=== PATIENT | male | born 1955 | race African-American/Black ===

== ENCOUNTER 2017-08-30 23:31 | Emergency (ER) | payer MEDICAID ==
[~2017-08-30] VITALS: Ht 172.7 cm; Wt 81.6 kg
[~2017-08-30 23:31] MED LIST: AMLO10TA2 PO; LOSA100T27 PO
[2017-08-31 05:26] LABS: Basophils # (auto) 0 uL; Basophils % (auto) 0.4 % (0.0-2.0); Eosinophils # (auto) 0 uL; Hematocrit 37.6 % (41.0-53.0); Hemoglobin 12.7 g/dL (13.5-17.5); Lymphocytes % (auto) 9.3 % (10.0-50.0); Mean Corpuscular Hemoglobin 31.8 pg (28.0-32.0); Mean Corpuscular Hgb Conc. 33.7 g/dL (32.0-36.0); Mean Corpuscular Volume 94.2 fL (80.0-100.0); Mean Platelet Volume 10.9 fL (6.9-10.8); Monocytes # (auto) 0.6 uL; Monocytes % (auto) 5.1 % (0.0-12.0); Neutrophils # (auto) 9.4 uL; Neutrophils % (auto) 85.2 % (37.0-80.0); Nucleated Red Blood Cells % 0.1 %; Platelet Count (auto) 108 10^3/uL (140-450); Red Cell Distribution Width 13.9 % (11.8-14.3)
[2017-08-31 05:43] LABS: INR 1.04 (0.9-1.15); Partial Thromboplastin Time 22.5 sec (22.64-33.71); Prothrombin Time 11.3 sec (9.37-12.3)
[2017-08-31 05:44] LABS: Albumin 3.6 g/dL (3.4-5.0); Calcium 9.1 mg/dL (8.5-10.1); Potassium 3.7 mmol/L (3.5-5.1)
[2017-08-31 05:47] LABS: BUN/Creatinine Ratio 41.5
[2017-08-31 05:50] LABS: Bilirubin, Total 1.2 mg/dL (0.2-1.0); Total Protein 7.7 g/dL (6.4-8.2)
[2017-08-31] MEDS ORDERED: SODIUM CHLORIDE 0.9% 1,000 ML IV ONE (07:38)
[2017-08-31] MEDS ORDERED: ONDANSETRON HCL 4 MG/2 ML VIAL IV ONE (08:00)
[2017-08-31] MEDS ORDERED: LEVOFLOXACIN 500 MG TAB PO ONE (08:00)
[2017-08-31 09:46] VITALS: BP 145/94
[2017-08-31 09:55] LABS: Urine Bilirubin Negative (Negative); Urine Blood Negative /uL (Negative); Urine Color Yellow (Yellow); Urine Glucose Normal (Normal); Urine Ketone 1+ (Negative); Urine Mucus FEW (None Seen); Urine Nitrite Negative (Negative); Urine RBC <1 /hpf (0 - 3); Urine Squamous Epithelial Cell FEW /hpf (<5)
== END 2017-08-31 11:28 | disposition home or self-care (01) ==
LOC: EDBD 23:31 → ER 23:37
DX: E86.0 Dehydration (principal); J40 Bronchitis, not specified as acute or chronic; F17.210 Nicotine dependence, cigarettes, uncomplicated; R53.1 Weakness; I10 Essential (primary) hypertension; Z88.0 Allergy status to penicillin; Z90.49 Acquired absence of other specified parts of digestive tract
CPT/HCPCS: 36415; 74176; 80053; 81001; 82962; 85025; 85610; 85730; 96361; 96374; 99285; J2405; J7030

== ENCOUNTER 2018-12-19 00:21 | Emergency (ER) | payer MEDICAID, OTHER ==
[~2018-12-19] VITALS: Ht 167.6 cm; Wt 83.9 kg
[~2018-12-19 00:21] MED LIST changes: +AMLO10TA12 PO; -AMLO10TA2 PO; +LOSA-49 PO; -LOSA100T27 PO
[2018-12-19 01:55] VITALS: BP 142/83
[2018-12-19] MEDS ORDERED: BACLOFEN 10 MG TAB PO ONE (02:30)
[2018-12-19] MEDS ORDERED: HYDROcodone-ACET 10/325MG TAB PO ONE (02:30)
== END 2018-12-19 03:00 | disposition home or self-care (01) ==
LOC: EDBD 00:21 → ER 00:31
DX: S33.5XXA Sprain of ligaments of lumbar spine, initial encounter (principal); I10 Essential (primary) hypertension; F17.210 Nicotine dependence, cigarettes, uncomplicated; Z88.0 Allergy status to penicillin; Z90.89 Acquired absence of other organs; X58.XXXA Exposure to other specified factors, initial encounter; Y93.89 Activity, other specified; Y99.8 Other external cause status; Y92.89 Other specified places as the place of occurrence of the external cause
CPT/HCPCS: 72100

== ENCOUNTER 2019-03-25 13:19 | Emergency (ER) | payer MEDICAID, OTHER ==
[~2019-03-25] VITALS: Ht 167.6 cm; Wt 81.6 kg
[2019-03-25 14:39] LABS: Alanine Aminotransferase 56 U/L (16-61); Albumin 3.6 g/dL (3.4-5.0); Anion Gap 15 (5-15); Blood Urea Nitrogen 8 mg/dL (7-18); Calcium 8.5 mg/dL (8.5-10.1); Carbon Dioxide 20 mmol/L (21-32); Chloride 100 mmol/L (98-107); Glucose 82 mg/dL (74-106); Potassium 4.2 mmol/L (3.5-5.1); Sodium 135 mmol/L (136-145)
[2019-03-25 14:44] LABS: Alkaline Phosphatase 66 U/L (45-117); Aspartate Aminotransferase 80 U/L (15-37); BUN/Creatinine Ratio 10.3; Bilirubin, Total 0.7 mg/dL (0.2-1.0); GFR African American 128 mL/min; GFR Non-African American 106 mL/min; Total Protein 7.7 g/dL (6.4-8.2)
[2019-03-25 14:55] LABS: Basophils # (auto) 0.1 uL; Basophils % (auto) 1.2 % (0.0-2.0); Eosinophils # (auto) 0 uL; Eosinophils % (auto) 0.2 % (0.0-7.0); Hemoglobin 14.6 g/dL (13.5-17.5); Lymphocytes # (auto) 1.7 uL; Mean Corpuscular Hemoglobin 29.8 pg (28.0-32.0); Mean Corpuscular Hgb Conc. 33.3 g/dL (32.0-36.0); Mean Corpuscular Volume 89.4 fL (80.0-100.0); Monocytes # (auto) 0.5 uL; Monocytes % (auto) 9.5 % (0.0-12.0); Neutrophils # (auto) 2.9 uL; Neutrophils % (auto) 56.1 % (37.0-80.0); Nucleated Red Blood Cells % 0.1 %; Platelet Count (auto) 146 10^3/uL (140-450); Red Blood Cells 4.92 10^6/uL (4.5-5.90); Red Cell Distribution Width 16.1 % (11.8-14.3); White Blood Cell 5.1 10^3/uL (4.4-10.8)
[2019-03-25] MEDS ORDERED: SODIUM CHLORIDE 0.9% 1,000 ML IV ONE (20:45)
[2019-03-25] MEDS ORDERED: ONDANSETRON HCL 4 MG/2 ML VIAL IV ONE (20:45)
[2019-03-25 20:49] VITALS: BP 130/87
== END 2019-03-25 22:32 | disposition home or self-care (01) ==
LOC: ER 13:39
DX: E86.0 Dehydration (principal); F43.9 Reaction to severe stress, unspecified; R60.0 Localized edema; I10 Essential (primary) hypertension; F17.210 Nicotine dependence, cigarettes, uncomplicated; Z88.0 Allergy status to penicillin; Z79.899 Other long term (current) drug therapy; Z90.49 Acquired absence of other specified parts of digestive tract
CPT/HCPCS: 36415; 71046; 80053; 84484; 85025; 93005; 96361; 96374; 99284; J2405; J7030

== ENCOUNTER 2019-11-30 21:32 | Emergency (ER) | payer OTHER, MEDICAID ==
[~2019-11-30] VITALS: Ht 167.6 cm; Wt 81.6 kg
[~2019-11-30 21:32] MED LIST changes: -AMLO10TA12 PO; +AMLO10TA13 PO; +LOSA-39 PO; -LOSA-49 PO
[2019-11-30] MEDS ORDERED: IOHEXOL 300 MG/ML 100ML BOTTLE IJ ONE (23:17)
[2019-12-01 00:43] LABS: Basophils # (auto) 0.1 uL; Basophils % (auto) 1.5 % (0.0-2.0); Eosinophils # (auto) 0 uL; Eosinophils % (auto) 0.2 % (0.0-7.0); Hematocrit 41.9 % (41.0-53.0); Hemoglobin 14.3 g/dL (13.5-17.5); Lymphocytes # (auto) 1.3 uL; Lymphocytes % (auto) 20.1 % (10.0-50.0); Mean Corpuscular Hemoglobin 32.7 pg (28.0-32.0); Mean Corpuscular Hgb Conc. 34.1 g/dL (32.0-36.0); Mean Corpuscular Volume 95.8 fL (80.0-100.0); Monocytes # (auto) 0.6 uL; Monocytes % (auto) 9.8 % (0.0-12.0); Neutrophils # (auto) 4.3 uL; Neutrophils % (auto) 68.4 % (37.0-80.0); Nucleated Red Blood Cells % 0.1 %; Platelet Count (auto) 197 10^3/uL (140-450); Red Blood Cells 4.37 10^6/uL (4.5-5.90); Red Cell Distribution Width 14.3 % (11.8-14.3); White Blood Cell 6.3 10^3/uL (4.4-10.8)
[2019-12-01 00:58] LABS: INR 1.11 (0.9-1.15); Partial Thromboplastin Time 25.5 sec (23.64-32.05)
[2019-12-01 01:01] LABS: Lactic Acid w/Reflex 2.3 mmol/L (0.4-2.0)
[2019-12-01 01:02] LABS: Albumin 3.3 g/dL (3.4-5.0); Potassium 5.3 mmol/L (3.5-5.1)
[2019-12-01 01:05] LABS: Amylase 35 U/L (25-115); BUN/Creatinine Ratio 30.2; Blood Alcohol < 3.0 mg/dL (0-5); Lipase 95 U/L (73-393)
[2019-12-01 01:22] LABS: Bilirubin, Total 0.7 mg/dL (0.2-1.0); Total Protein 7.7 g/dL (6.4-8.2)
[2019-12-01] MEDS ORDERED: PANTOPRAZOLE 40 MG/10 ML VIAL INJ IV ONE (02:45)
[2019-12-01] MEDS ORDERED: PANTOPRAZOLE 80 MG in SODIUM CHL 0.9% 60 ML IV ONE (02:45)
[2019-12-01 10:57] VITALS: BP 136/101
== END 2019-12-01 11:13 | disposition short-term general hospital (02) ==
LOC: ER 21:32
DX: K92.2 Gastrointestinal hemorrhage, unspecified (principal); R11.2 Nausea with vomiting, unspecified; I10 Essential (primary) hypertension; Z88.0 Allergy status to penicillin
CPT/HCPCS: 36415; 71046; 74177; 80053; 80320; 82150; 83605; 83690; 83880; 84484; 85025; 85610; 85730; 86850; 86900; 86901; 93005; 96365; 96376; 99285; C9113; Q9967

== ENCOUNTER 2024-04-21 14:02 | Inpatient (IN) | payer OTHER, MEDICAID ==
[~2024-04-21] VITALS: Ht 177.8 cm; Wt 76.5 kg
[~2024-04-21 14:02] MED LIST changes: -AMLO10TA13 PO; +BISO10TA31 PO; +FOLI-119 PO; -LOSA-39 PO; +METF-1145 PO; +PANT40T PO; +SUCR1TAB PO; +THIA100T5 PO
[2024-04-21] MEDS: SODIUM CHLORIDE 0.9% 1,000 ML IV SCH (15:30)
[2024-04-21] MEDS: SODIUM CHLORIDE 0.9% 1,000 ML IV ONE ×2 (15:30→16:39)
[2024-04-21] MEDS: PANTOPRAZOLE 40 MG/10 ML VIAL INJ IV ONE (15:45)
[2024-04-21] MEDS ORDERED: DEXTROSE (50%) 50ML SYRG IV PRN (15:45)
[2024-04-21 15:47] LABS: Basophils # (auto) 0.1 10 ^3/uL (0-0.2); Eosinophils # (auto) 0 10 ^3/uL (0-0.8); Eosinophils % (auto) 0.6 % (0.0-7.0); Hematocrit 38.5 % (41.0-53.0); Hemoglobin 12.7 g/dL (13.5-17.5); Lymphocytes # (auto) 2.8 10 ^3/uL (0.4-5.4); Lymphocytes % (auto) 50.2 % (10.0-50.0); Mean Corpuscular Hemoglobin 32.6 pg (28.0-32.0); Mean Corpuscular Volume 98.7 fL (80.0-100.0); Monocytes # (auto) 0.5 10 ^3/uL (0-1.3); Monocytes % (auto) 9.3 % (0.0-12.0); Neutrophils # (auto) 2.2 10 ^3/uL (1.6-8.6); Neutrophils % (auto) 38.9 % (37.0-80.0); Nucleated Red Blood Cells % 0.1 %; Red Cell Distribution Width 16.2 % (11.8-14.3); White Blood Cell 5.6 10^3/uL (4.4-10.8)
[2024-04-21 16:04] LABS: Alanine Aminotransferase 18 U/L (7-40); Albumin 3.6 g/dL (3.2-4.8); Alkaline Phosphatase 85 U/L (46-116); Anion Gap 9 (5-15); Aspartate Aminotransferase 55 U/L (13-40); Calcium 9.2 mg/dL (8.5-10.1); Carbon Dioxide 20 mmol/L (20-30); Chloride 103 mmol/L (98-107); Creatine Kinase IFCC 59 U/L (46-171); Glucose 138 mg/dL (74-106); Magnesium 1.7 mg/dL (1.6-2.6); Potassium 4.9 mmol/L (3.5-5.1); Sodium 132 mmol/L (136-145)
[2024-04-21 16:05] LABS: Bilirubin, Total 0.3 mg/dL (0.2-1.0); Total Protein 7.2 g/dL (5.7-8.2)
[2024-04-21 16:07] LABS: BUN/Creatinine Ratio 5.8 (10.0-20.0); Blood Urea Nitrogen < 5 mg/dL (9-23)
[2024-04-21 16:12] LABS: Blood Alcohol 317.6 mg/dL (<10)
[2024-04-21 16:20] LABS: Lactic Acid w/Reflex 6.7 mmol/L (0.4-2.0)
[2024-04-21] MEDS: LORazepam 2MG/ML-1ML VIAL IV ONE ×2 (16:27→19:51)
[2024-04-21] MEDS: LACTULOSE 10g/15ml SOLN 473ML PR ONE (16:42)
[2024-04-21] MEDS ORDERED: HYDROcodone-ACET 5/325MG TAB PO PRN (17:15)
[2024-04-21] MEDS ORDERED: MORPHINE SULFATE INJ 2 MG/ml SYRG IV PRN ×2 (17:15)
[2024-04-21] MEDS ORDERED: ACETAMINOPHEN 325 MG TAB PO PRN (17:15)
[2024-04-21] MEDS ORDERED: ONDANSETRON HCL 4 MG/2 ML VIAL IV PRN (17:15)
[2024-04-21] MEDS ORDERED: NITROGLYCERIN 0.4 MG SL TAB SL PRN (17:15)
[2024-04-21] MEDS ORDERED: DOCUSATE SOD 100 MG CAP PO PRN (17:15)
[2024-04-21] MEDS: LACTULOSE 20Gm/30ML SOLN PO ONE (17:23)
[2024-04-21] MEDS: hydrALAZINE HCL 20 MG/ML VL IV SCH (17:37)
[2024-04-21] MEDS: ACCU-CHEK COMFORT CURVE STRIP VI SCH (17:38)
[2024-04-21] MEDS: InsuLIN REG 1unit/0.01ml Soln (100units/ml) SC SCH (17:39)
[2024-04-21] MEDS: FOLIC ACID 1 MG, MULTIPLE VITAMIN 10 ML, MAGNESIUM SULF SDV 50% 8 MEQ, THIAMINE INJ 100... INJ SCH (18:11)
[2024-04-21 19:30] VITALS: PULSE 116; RESP 20; O2SAT 98
[2024-04-21] MEDS: LORazepam 2MG/ML-1ML VIAL IV PRN (19:50)
[2024-04-22 06:11] LABS: Basophils # (auto) 0.1 10 ^3/uL (0-0.2); Basophils % (auto) 1.4 % (0.0-2.0); Eosinophils # (auto) 0.1 10 ^3/uL (0-0.8); Eosinophils % (auto) 2.4 % (0.0-7.0); Hematocrit 36.9 % (41.0-53.0); Hemoglobin 12.5 g/dL (13.5-17.5); Lymphocytes # (auto) 2.2 10 ^3/uL (0.4-5.4); Mean Corpuscular Hemoglobin 32.5 pg (28.0-32.0); Mean Corpuscular Hgb Conc. 33.8 g/dL (32.0-36.0); Monocytes # (auto) 0.5 10 ^3/uL (0-1.3); Monocytes % (auto) 9.4 % (0.0-12.0); Neutrophils # (auto) 2.7 10 ^3/uL (1.6-8.6); Neutrophils % (auto) 47.8 % (37.0-80.0); Nucleated Red Blood Cells % 0.1 %; Red Blood Cells 3.84 10^6/uL (4.5-5.90); Red Cell Distribution Width 15.4 % (11.8-14.3); White Blood Cell 5.7 10^3/uL (4.4-10.8)
[2024-04-22 06:23] LABS: Alanine Aminotransferase 15 U/L (7-40); Albumin 3.1 g/dL (3.2-4.8); Alkaline Phosphatase 86 U/L (46-116); Anion Gap 9 (5-15); Aspartate Aminotransferase 61 U/L (13-40); Calcium 8.7 mg/dL (8.5-10.1); Carbon Dioxide 19 mmol/L (20-30); Chloride 107 mmol/L (98-107); Glucose 100 mg/dL (74-106); Potassium 4.1 mmol/L (3.5-5.1); Sodium 135 mmol/L (136-145)
[2024-04-22 06:24] LABS: BUN/Creatinine Ratio 7.5 (10.0-20.0); Bilirubin, Total 0.7 mg/dL (0.2-1.0); Blood Urea Nitrogen < 5 mg/dL (9-23); Total Protein 6.3 g/dL (5.7-8.2)
[2024-04-22 08:00] VITALS: PULSE 102; RESP 14; O2SAT 97
[2024-04-22 08:52] LABS: Urine Bacteria None Seen /hpf (None Seen)
[2024-04-22 08:57] LABS: Urine Blood Negative /uL (Negative); Urine Clarity Clear (Clear); Urine Color Light-Yellow (Yellow); Urine Mucus FEW (None Seen); Urine Protein, UAD Negative (Negative); Urine Urobilinogen Normal (Negative); Urine WBC 1 /hpf (0 - 3)
[2024-04-22 09:14] LABS: Amphetamine Screen, Urine Neg (NEGATIVE); Barbiturate Scree,Urine Neg (NEGATIVE); Benzodiazephine Screen, Urine Neg (NEGATIVE); Cannabinoid Screen, Urine Neg (NEGATIVE); Cocaine Screen, Urine Pos (NEGATIVE); Opiate Scree,Urine Neg (NEGATIVE); Phencyclidine Screen, Urine Neg (NEGATIVE)
[2024-04-22] MEDS: LACTULOSE 10g/15ml SOLN 473ML PR SCH (10:00)
[2024-04-22] MEDS: PANTOPRAZOLE 40 MG/10 ML VIAL INJ IV SCH (11:11)
[2024-04-22] MEDS: LACTULOSE 20Gm/30ML SOLN PO SCH (12:34)
[2024-04-22] MEDS: chlordiazePOXIDE HCL 25 MG CAP PO SCH (12:34)
[2024-04-22 14:07] VITALS: BP 132/82; PULSE 80; RESP 16; TEMP 98.5; O2SAT 98
[2024-04-22 15:06] VITALS: BP 132/82; PULSE 80; RESP 16; TEMP 98.5; O2SAT 98
[2024-04-22 16:09] VITALS: PULSE 80; RESP 16; O2SAT 98
[2024-04-22 16:40] VITALS: BP 138/78; PULSE 62; RESP 14; TEMP 97.5; O2SAT 95
[2024-04-22 20:17] VITALS: PULSE 72; RESP 18
[2024-04-22] MEDS: SODIUM CHLORIDE 0.9% 1,000 ML IV SCH (20:53)
[2024-04-23 05:59] VITALS: BP 110/67; PULSE 78; RESP 20; TEMP 98.2; O2SAT 95
[2024-04-23 08:05] VITALS: RESP 18
[2024-04-23] MEDS ORDERED: hydrALAZINE HCL 20 MG/ML VL IV PRN (08:30)
[2024-04-23 09:00] VITALS: BP 137/78; PULSE 115; RESP 20; TEMP 98; O2SAT 96
[2024-04-23 09:17] LABS: Hepatitis B Core Total AB React (Negative)
[2024-04-23 09:30] LABS: Hepatitis A Total Antibody Negative (Negative); Hepatitis B Surface Antibody Positive (Negative); Hepatitis B Surface Antigen Negative (Negative); Hepatitis C Antibody Negative (Negative)
[2024-04-23] MEDS: chlordiazePOXIDE HCL 25 MG CAP PO SCH (11:47)
[2024-04-23 13:00] VITALS: BP 130/76; PULSE 87; RESP 20; TEMP 97.9; O2SAT 96
[2024-04-23 17:00] VITALS: BP 113/77; PULSE 97; RESP 18; TEMP 98.1; O2SAT 97
[2024-04-23 21:00] VITALS: BP 123/73; PULSE 104; RESP 18; TEMP 98.3; O2SAT 98
[2024-04-23 22:25] LABS: INR 1.17 (0.9-1.15); Prothrombin Time 12.3 sec (9.3-11.8)
[2024-04-24 08:14] VITALS: BP 127/69; PULSE 51; RESP 15; TEMP 98.3; O2SAT 96
[2024-04-24] MEDS ORDERED: CHL25C PO (08:36)
[2024-04-24] MEDS ORDERED: FOLI-119 PO (08:36)
[2024-04-24] MEDS ORDERED: THIA100T13 PO (08:36)
[2024-04-24] MEDS: chlordiazePOXIDE HCL 25 MG CAP PO SCH (09:15)
[2024-04-24 10:21] VITALS: BP 110/67
[2024-04-25] MEDS ORDERED: chlordiazePOXIDE HCL 25 MG CAP PO SCH (07:00)
== END 2024-04-24 13:30 | disposition home or self-care (01) | DRG 92 ==
LOC: EDBD 14:02 → ER 14:02 → OVERFLOW 17:16 → CENTRAL 04-22 13:56
PROVIDERS: ADMIT Nurse Practitioner Family; ATTEND Family Medicine
DX: G92.8 Other toxic encephalopathy (principal); E87.20 Acidosis, unspecified; E86.0 Dehydration; I10 Essential (primary) hypertension; E11.9 Type 2 diabetes mellitus without complications; F10.129 Alcohol abuse with intoxication, unspecified; Y90.8 Blood alcohol level of 240 mg/100 ml or more; E78.5 Hyperlipidemia, unspecified; R79.89 Other specified abnormal findings of blood chemistry; F32.A Depression, unspecified; M25.551 Pain in right hip; K74.60 Unspecified cirrhosis of liver; G89.29 Other chronic pain; Z82.49 Family history of ischemic heart disease and other diseases of the circulatory system; Z88.0 Allergy status to penicillin; Z79.899 Other long term (current) drug therapy
CPT/HCPCS: 36415; 70450; 71045; 72125; 73700; 74176; 76705; 80053; 80307; 80320; 81001; 82140; 82550; 82728; 83605; 83690; 83735; 83880; 84484; 85025; 85610; 86704; 86706; 86708; 86803; 87340; 96361; 96374; 96375; 96376; 97163; C9113; G0378; J1815

== ENCOUNTER 2025-03-17 10:40 | Emergency (ER) | payer OTHER, MEDICAID ==
[~2025-03-17] VITALS: Ht 167.6 cm; Wt 72.9 kg
[~2025-03-17 10:40] MED LIST changes: +CHL25C PO; +THIA100T13 PO
--- NOTE | 2025-03-17 11:16 | ED.PDOC ---
History of Present Illness HPI Comments 70-year-old male who comes in with chief complaint of left great toe pain. The patient was having some redness and tenderness to the area after he fell last week. The patient denies any other complaints at this time. There has been no fever or chills. The patient states that the pain is approximately an 8/10. Time Seen by MD: 10:43 Primary Care Provider: KAYLIN Reviewed Notes: Nurses Notes, Medications, Allergies (Allergic to penicillin) Allergies: Coded Allergies: Penicillins (Verified Allergy, Severe, FAINTED, 05/29/15) Home Meds Active Scripts Clindamycin Hcl (CLEOCIN) 150 Mg Cap, 1 CAP PO TID, #30 CAP Prov:SOLANGE POZO MD 03/17/25 Chlordiazepoxide Hcl (Librium) 25 Mg Cp, 25 MG PO TID, #30 CAP Prov:STEPHEN TREVIZO MD 04/24/24 Folic Acid (Folic Acid) 1 Mg Tab, 1 MG PO DAILY, #30 TAB Prov:STEPHEN TREVIZO MD 04/24/24 Thiamine HCl (Thiamine Hydrochloride) 100 Mg Tab, 100 MG PO DAILY, #30 TAB Prov:STEPHEN TREVIZO MD 04/24/24 Folic Acid (Folic Acid) 1 Mg Tab, 1 MG PO DAILY, #30 TAB Prov:STEPHEN TREVIZO MD 03/02/23 Thiamine Hcl (Thiamine Hcl) 100 Mg Tab, 1 TAB PO DAILY, #30 TAB 3 Refills Prov:STEPHEN TREVIZO MD 03/02/23 Sucralfate (Sucralfate) 1 Gm Tab, 1 GM PO Q6HR, #120 TAB Prov:STEPHEN TREVIZO MD 03/02/23 Pantoprazole Sodium Sesquihydr (Pantoprazole Sodium) 40 Mg Tab, 40 MG PO BID, #60 TAB Prov:STEPHEN TREVIZO MD 03/02/23 Reported Medications Bisoprolol Fumarate (Bisoprolol Fumarate) 10 Mg Tab, 1 TAB PO DAILY 03/01/23 Metformin Hydrochloride (Metformin Hcl Er) 500 Mg Tab, 1 TAB PO DAILY 02/28/23 Information Source: Patient Mode of Arrival: The patient was using a walker Severity: Moderate Timing: Days Duration: Since onset Prehospital treatment: None Location: Left great toe pain and redness Past Medical History PAST MEDICAL HISTORY: DM, HTN Surgical History: Appendectomy Family History Family History: Family hx of DM, Family hx of Cancer, Family hx of heart simeon, Family hx of HTN Social History Smoker: Cigarettes, Less Than 1 Pack/Day Alcohol: Occasionally Drugs: Denies Drug Use Lives In: Home Constitutional: denies: chills, diaphoresis, fatigue, fever, malaise, sweats, weakness, others EENTM: denies: blurred vision, double vision, ear bleeding, ear discharge, ear drainage, ear pain, ear ringing, eye pain, eye redness, hearing loss, mouth pain, mouth swelling, nasal discharge, nose bleeding, nose congestion, nose pain, photophobia, tearing, throat pain, throat swelling, voice changes, others Respiratory: denies: cough, hemoptysis, orthopnea, SOB at rest, shortness of breath, SOB with excertion, stridor, wheezing, others Cardiovascular: denies: chest pain, dizzy spells, diaphoresis, Dyspnea on exertion, edema, irregular heart beat, left arm pain, lightheadedness, palpitations, PND, syncope, others Gastrointestinal: denies: abdomen distended, abdominal pain, blood streaked bowels, constipated, diarrhea, dysphagia, difficulty swallowing, hematemesis, melena, nausea, poor appetite, poor fluid intake, rectal bleeding, rectal pain, vomiting, others Genitourinary: denies: burning, dysuria, flank pain, frequency, hematuria, incontinence, penile discharge, penile sore, pain, testicle pain, testicle swelling, urgency, others Neurological: denies: dizziness, fainting, headache, left sided numbness, left sided weakness, numbness, paresthesia, pre-existing deficit, right sided numbness, right sided weakness, seizure, speech problems, tingling, tremors, weakness, others Musculoskeletal: reports: others (Left great toe pain and redness); denies: back pain, gout, joint pain, joint swelling, muscle pain, muscle stiffness, neck pain Integumetry: denies: bruises, change in color, change in hair/nails, dryness, laceration, lesions, lumps, rash, wounds, others Allergic/Immunocompromised: denies: Difficulty Healing, Frequent Infections, Hives, Itching, others Hematologic/Lymphatic: denies: anemia, blood clots, easy bleeding, easy br uising, swollen glands, others Endocrine: denies: excessive hunger, excessive sweating, excessive thirst, excessive urination, flushing, intolerance to cold, intolerance to heat, unexplained weight gain, unexplained weight loss, others Psychiatric: denies: anxiety, bipolar disorder, depression, hopeless, panic disorder, schizophrenia, sleepless, suicidal, others Physical Exam General Appearance: Moderate Distress HEENT: Normal ENT Inspection, Pharynx Normal, TMs Normal Neck: Full Range of Motion, Non-Tender, Normal, Normal Inspection Respiratory: Chest Non-Tender, Lungs Clear, No Accessory Muscle Use, No Respiratory Distress, Normal Breath Sounds Cardiovascular: No Edema, No JVD, No Murmur, No Gallop, Normal Peripheral P ulses, Regular Rate/Rhythm Breast Exam: Deferred Gastrointestinal: No Organomegaly, Non Tender, No Pulsatile Mass, Normal Bowel Sounds, Soft Genitalia: Deferred Pelvic: Deferred Rectal: Deferred Extremities: No calf tenderness, Normal capillary refill, No pedal edema, Swelling (Great toe redness and swelling), Tender Musculoskeletal : Apperance: Normal Neurologic: Alert, technology sales consultant II-XII nml as Tested, No Motor Deficits, Normal Affect, Normal Mood, No Sensory Deficits Cerebellar Function: Normal Reflexes: Normal Skin: Dry, Normal Color, Warm Lymphatic: No Adenopathy Was a procedure done? Was a procedure done?: No Differential Dx Considerations may include: Gout, fracture, contusion X-Ray, Labs, Meds, VS Vital Signs Date Time Temp Pulse Resp B/P (MAP) Pulse Ox O2 Delivery O2 Flow Rate FiO2 03/17/25 12:30 97.9 60 18 121/85 (97) 96 97.9 03/17/25 11:03 98.9 52 18 122/62 (82) 98 98.9 Lab Test 03/17/25 11:29 03/17/25 11:25 Range/Units White Blood Count 7.3 4.4-10.8 10^3/uL Red Blood Count 4.43 L 4.5-5.90 10^6/uL Hemoglobin 14.2 13.5-17.5 g/dL Hematocrit 42.9 41.0-53.0 % Mean Corpuscular Volume 96.7 80.0-100.0 fL Mean Corpuscular Hemoglobin 31.9 28.0-32.0 pg Mean Corpuscular Hemoglobin Concent 33.0 32.0-36.0 g/dL Red Cell Distribution Width 14.9 H 11.8-14.3 % Platelet Count 209 140-450 10^3/uL Mean Platelet Volume 8.6 6.9-10.8 fL Neutrophils (%) (Auto) 61.4 37.0-80.0 % Lymphocytes (%) (Auto) 26.1 10.0-50.0 % Monocytes (%) (Auto) 9.3 0.0-12.0 % Eosinophils (%) (Auto) 2.1 0.0-7.0 % Basophils (%) (Auto) 1.1 0.0-2.0 % Neutrophils # (Auto) 4.5 1.6-8.6 10 ^3/uL Lymphocytes # (Auto) 1.9 0.4-5.4 10 ^3/uL Monocytes # (Auto) 0.7 0-1.3 10 ^3/uL Eosinophils # (Auto) 0.2 0-0.8 10 ^3/uL Basophils # (Auto) 0.1 0-0.2 10 ^3/uL Nucleated Red Blood Cells 0.1 % Erythrocyte Sedimentation Rate 14 0-20 mm/hr Sodium Level 134 L 136-145 mmol/L Potassium Level 4.4 3.5-5.1 mmol/L Chloride Level 102 98-107 mmol/L Carbon Dioxide Level 25 20-31 mmol/L Anion Gap 7 5-15 Blood Urea Nitrogen 10 9-23 mg/dL Creatinine 1.00 0.700-1.30 mg/dL Glomerular Filtration Rate Calc 80 >90 mL/min BUN/Creatinine Ratio 10.0 10.0-20.0 Serum Glucose 114 H 74-106 mg/dL Uric Acid 9.3 H 3.7-9.2 mg/dL Calcium Level 9.8 8.7-10.4 mg/dL POC Glucose 120 H 70-106 mg/dl CAT scan of the left foot shows: IMPRESSION: 1. Of the visualized spine, there is no evidence for fracture or subluxation. The patient's CBC and chemistry panel are within normal limits. The patient was glucose is 120 At this time, the patient will be started on Cleocin for the cellulitis to the left foot The patient will return to the emergency department's condition worsens. The patient will be placed in a walking boot Images Reviewed?: Images reviewed and evaluated by me Time of 1ST Reevaluation: 11:16 Reevaluation 1ST: Unchanged Patient Education/Counseling: Diagnosis, Treatment, Prognosis, Need For Follow Up Family Education/Counseling: No Family Present Departure 1 Departure Time of Disposition: 13:06 Impression: Primary Impression: Cellulitis of left foot Disposition: 01 HOME / SELF CARE / HOMELESS Condition: Fair e-Prescriptions Clindamycin Hcl (CLEOCIN) 150 Mg Cap 1 CAP PO TID, #30 CAP Prov: SOLANGE POZO MD 03/17/25 Discharged With: Self Critical Care Note Critical Care Time?: No Stability Stability form required: No Heart Score Heart Score: Heart Score Response (Comments) Value History N/A 0 EKG N/A 0 Age N/A 0 Risk Factors N/A 0 Troponin N/A 0 Total 0 SOLANGE POZO MD Mar 17, 2025 11:16
[2025-03-17 11:40] LABS: Basophils # (auto) 0.1 10 ^3/uL (0-0.2); Basophils % (auto) 1.1 % (0.0-2.0); Eosinophils # (auto) 0.2 10 ^3/uL (0-0.8); Eosinophils % (auto) 2.1 % (0.0-7.0); Hematocrit 42.9 % (41.0-53.0); Hemoglobin 14.2 g/dL (13.5-17.5); Lymphocytes # (auto) 1.9 10 ^3/uL (0.4-5.4); Lymphocytes % (auto) 26.1 % (10.0-50.0); Mean Corpuscular Hemoglobin 31.9 pg (28.0-32.0); Mean Corpuscular Volume 96.7 fL (80.0-100.0); Monocytes # (auto) 0.7 10 ^3/uL (0-1.3); Monocytes % (auto) 9.3 % (0.0-12.0); Neutrophils # (auto) 4.5 10 ^3/uL (1.6-8.6); Neutrophils % (auto) 61.4 % (37.0-80.0); Nucleated Red Blood Cells % 0.1 %; Platelet Count (auto) 209 10^3/uL (140-450); Red Blood Cells 4.43 10^6/uL (4.5-5.90); Red Cell Distribution Width 14.9 % (11.8-14.3); White Blood Cell 7.3 10^3/uL (4.4-10.8)
[2025-03-17 11:50] LABS: Chloride 102 mmol/L (98-107); Potassium 4.4 mmol/L (3.5-5.1)
[2025-03-17 11:51] LABS: Anion Gap 7 (5-15); Calcium 9.8 mg/dL (8.7-10.4); Carbon Dioxide 25 mmol/L (20-31)
[2025-03-17 11:55] LABS: Sodium 134 mmol/L (136-145); Uric Acid 9.3 mg/dL (3.7-9.2)
[2025-03-17 11:56] LABS: Blood Urea Nitrogen 10 mg/dL (9-23)
[2025-03-17 11:59] LABS: Glucose 114 mg/dL (74-106)
--- NOTE | 2025-03-17 12:33 | DVH ---
CLINICAL INDICATION: 70 years old, Male; pain. TECHNIQUE: Noncontrast CT of the left foot was performed. Sagittal and coronal reformatted images are provided. COMPARISON: None. CT Dose: CTDI volume is mGy. Dose-length product is mGy*cm FINDINGS: No fracture or dislocation. No cortical destruction. No abnormal alignment. Soft tissue sw elling of the dorsal foot. Midfoot arthrosis. Vascular calcifications. IMPRESSION: 1. No acute fracture or dislocation. No cortical destruction. All CT scans at this medical facility are performed using dose modulation techniques as appropriate t o a performed exam including the following: Automated exposure control was utilized; adjustment of th e MA and/or KV according to patient size; and use of iterative reconstruction technique.
[2025-03-17 12:38] LABS: Erythrocyte Sedimentation Rate 14 mm/hr (0-20)
[2025-03-17] MEDS ORDERED: CLIN150C PO (13:02)
[2025-03-17 13:24] VITALS: BP 152/79; PULSE 56; RESP 16; TEMP 98.7; O2SAT 97
== END 2025-03-17 13:26 | disposition home or self-care (01) ==
LOC: ER 10:40
DX: L03.116 Cellulitis of left lower limb (principal); E11.9 Type 2 diabetes mellitus without complications; I10 Essential (primary) hypertension; F17.210 Nicotine dependence, cigarettes, uncomplicated; Z90.49 Acquired absence of other specified parts of digestive tract; Z79.899 Other long term (current) drug therapy; Z83.3 Family history of diabetes mellitus; Z88.0 Allergy status to penicillin
CPT/HCPCS: 36415; 73700; 80048; 82962; 84550; 85025; 85652

== ENCOUNTER 2025-08-18 09:31 | Emergency (ER) | payer OTHER, MEDICAID ==
[~2025-08-18] VITALS: Ht 167.6 cm; Wt 65.0 kg
[~2025-08-18 09:31] MED LIST changes: +CLIN150C PO
[2025-08-18] MEDS ORDERED: CEPH500C PO (10:38)
[2025-08-18 10:40] VITALS: BP 120/80; PULSE 77; RESP 18; TEMP 98.2; O2SAT 96
--- NOTE | 2025-08-18 10:46 | ED.PDOC ---
History of Present Illness HPI Comments A 70 YEAR OLD MALE PRESENTS TO THE ED WITH COMPLAINT OF WOUND CHECK. PATIENT REPORTS ON BEING SCRATCHED ON SATURDAY DUE FROM ENTERING A DOOR IN WHEELCHAIR, GETTING A SKIN TEAR IN HIS LEFT FOREARM. PATIENT CAME IN TODAY TO HAVE A WOUND CHECK DUE FROM HIM HAVING HYPERTENSION AND DIABETES. PATIENT DENIES FEVER, CHILLS, SHORTNESS OF BREATH, CHEST PAIN, ABDOMINAL PAIN, NAUSEA, VOMITING, HEADACHE, OR OTHER COMPLAINTS. NO OTHER SYMPTOMS OR MODIFYING FACTORS AT THIS TIME. PATIENT IS ALERT, ORIENTED X 4, AND HAS STEADY GAIT. Chief Complaint: Wound Check Time Seen by MD: 10:45 Primary Care Provider: REENA Reviewed Notes: Nurses Notes, Medications, Allergies Allergies: Coded Allergies: Penicillins (Verified Allergy, Severe, FAINTED, 05/29/15) Home Meds Active Scripts Cephalexin Monohydrate (Cephalexin) 500 Mg Cap, 1 CAP PO QID, #28 CAP Prov:YVAN HOWE 08/18/25 Clindamycin Hcl (CLEOCIN) 150 Mg Cap, 1 CAP PO TID, #30 CAP Prov:SOLANGE POZO MD 03/17/25 Chlordiazepoxide Hcl (Librium) 25 Mg Cp, 25 MG PO TID, #30 CAP Prov:STEPHEN TREVIZO MD 04/24/24 Folic Acid (Folic Acid) 1 Mg Tab, 1 MG PO DAILY, #30 TAB Prov:STEPHEN TREVIZO MD 04/24/24 Thiamine HCl (Thiamine Hydrochloride) 100 Mg Tab, 100 MG PO DAILY, #30 TAB Prov:STEPHEN TREVIZO MD 04/24/24 Folic Acid (Folic Acid) 1 Mg Tab, 1 MG PO DAILY, #30 TAB Prov:STEPHEN TREVIZO MD 03/02/23 Thiamine Hcl (Thiamine Hcl) 100 Mg Tab, 1 TAB PO DAILY, #30 TAB 3 Refills Prov:STEPHEN TREVIZO MD 03/02/23 Sucralfate (Sucralfate) 1 Gm Tab, 1 GM PO Q6HR, #120 TAB Prov:STEPHEN TREVIZO MD 03/02/23 Pantoprazole Sodium Sesquihydr (Pantoprazole Sodium) 40 Mg Tab, 40 MG PO BID, #60 TAB Prov:STEPHEN TREVIZO MD 03/02/23 Reported Medications Bisoprolol Fumarate (Bisoprolol Fumarate) 10 Mg Tab, 1 TAB PO DAILY 03/01/23 Metformin Hydrochloride (Metformin Hcl Er) 500 Mg Tab, 1 TAB PO DAILY 02/28/23 Information Source: Patient Mode of Arrival: Ambulatory Severity: Mild Timing: Days Duration: Since onset, Days Prehospital treatment: None Medication Refill: For: Other (LEFT FOREARM WOUND RECHECK ) Past Medical History PAST MEDICAL HISTORY: DM, HTN Surgical History: Appendectomy Family History Family History: Reviewed,noncontributory to illness, Unknown Social History Smoker: Cigarettes, Less Than 1 Pack/Day Alcohol: Occasionally Drugs: Denies Drug Use Lives In: Home Constitutional: reports: others (WOUND CHECKED FOR A SKIN TEAR); denies: chills, diaphoresis, fatigue, fever, malaise, sweats, weakness EENTM: denies: blurred vision, double vision, ear bleeding, ear discharge, ear drainage, ear pain, ear ringing, eye pain, eye redness, hearing loss, mouth pain, mouth swelling, nasal discharge, nose bleeding, nose congestion, nose pain, photophobia, tearing, throat pain, throat swelling, voice changes, others Respiratory: denies: cough, hemoptysis, orthopnea, SOB at rest, shortness of breath, SOB with excertion, stridor, wheezing, others Cardiovascular: denies: chest pain, dizzy spells, diaphoresis, Dyspnea on exe rtion, edema, irregular heart beat, left arm pain, lightheadedness, palpitations, PND, syncope, others Gastrointestinal: denies: abdomen distended, abdominal pain, blood streaked bowels, constipated, diarrhea, dysphagia, difficulty swallowing, hematemesis, melena, nausea, poor appetite, poor fluid intake, rectal bleeding, rectal pain, vomiting, others Genitourinary: denies: burning, dysuria, flank pain, frequency, hematuria, incontinence, penile discharge, penile sore, pain, testicle pain, testicle swelling, urgency, others Neurological: denies: dizziness, fainting, headache, left sided numbness, left sided weakness, numbness, paresthesia, pre-existing deficit, right sided numbness, right sided weakness, seizure, speech problems, tingling, tremors, weakness, others Musculoskeletal: denies: back pain, gout, joint pain, joint swelling, muscle pain, muscle stiffness, neck pain, others Integumetry: reports: wounds (SKIN TEAR ON LEFT FOREARM. ); denies: bruises, change in color, change in hair/nails, dryness, laceration, lesions, lumps, rash, others Allergic/Immunocompromised: denies: Difficulty Healing, Frequent Infections, Hives, Itching, others Hematologic/Lymphatic: denies: anemia, blood clots, easy bleeding, easy bruising, swollen glands, others Endocrine: denies: excessive hunger, excessive sweating, excessive thirst, excessive urination, flushing, intolerance to cold, intolerance to heat, unexplained weight gain, unexplained weight loss, others Psychiatric: denies: anxiety, bipolar disorder, depression, hopeless, panic disorder, schizophrenia, sleepless, suicidal, others All Other Systems: Reviewed and Negative Physical Exam General Appearance: No Apparent Distress, Normal HEENT: Normal ENT Inspection, PERRL/EOMI, Pharynx Normal, TMs Normal Neck: Full Range of Motion, Non-Tender, Normal, Normal Inspection Respiratory: Chest Non-Tender, Lungs Clear, No Accessory Muscle Use, No Respiratory Distress, Normal Breath Sounds Cardiovascular: No Edema, No JVD, No Murmur, No Gallop, Normal Peripheral Pulses, Regular Rate/Rhythm Breast Exam: Deferred Gastrointestinal: No Organomegaly, Non Tender, No Pulsatile Mass, Normal Bowel Sounds, Soft Genitalia: Deferred Pelvic: Deferred Rectal: Deferred Extremities: No calf tenderness, Normal capillary refill, Normal inspection, Normal range of motion, Non-tender, No pedal edema Musculoskeletal : Apperance: Normal Neurologic: Alert, pan dumper II-XII nml as Tested, No Motor Deficits, Normal Affect, Normal Mood, No Sensory Deficits Cerebellar Function: Normal Reflexes: Normal Skin: Dry, Normal Color, Warm, Wounds (SKIN TEAR WOUND ON LEFT VOLAR FOREARM, HEALING, NO PUS DRAINAGE AND SWELLING. ) Peripheral Pulses: 2+ carotid (R), 2+ carotid (L), 2+ Radial (R), 2+ Radial (L) Lymphatic: No Adenopathy Was a procedure done? Was a procedure done?: No Differential Dx Considerations may include: WOUND RECHECK OF LEFT FOREARM X-Ray, Labs, Meds, VS Vital Signs Date Time Temp Pulse Resp B/P (MAP) Pulse Ox O2 Delivery O2 Flow Rate FiO2 08/18/25 10:40 77 18 96 Room Air 08/18/25 10:40 98.2 77 18 120/80 (93) 96 98.2 08/18/25 09:34 98.2 77 18 120/80 96 98.2 X-Ray, Labs, Meds, VS Comment EXTERNAL MEDICAL RECORDS REVIEWED: [NONE] INDEPENDENT HISTORIANS: [NONE] SOCIAL DETERMINANTS OF HEALTH: [NONE] LABS ORDERED: NONE REVIEWED AND INTERPRETED RESULTS: NONE IMAGING ORDERED: NONE TREATMENTS ORDERED: ANTIBIOTICS PROCEDURES PERFORMED: NONE CRITICAL CARE TIME: NONE I HAVE DISCUSSED THE PATIENT WITH THE ATTENDING PHYSICIAN DR. AGUILA AND HE AGREES WITH THE PATIENT'S PLAN OF CARE AND DISPOSITION. BASED ON HISTORY OF PRESENT ILLNESS, AND PHYSICAL EXAM, PATIENT WILL BE DISCHARGED HOME. DISCUSSED PLAN FOR DISCHARGE HOME WITH RX [facility]. MEDICATION WARNINGS GIVEN. SHARED DECISION MAKING: DISCUSSED WITH PATIENT THAT THEIR WORKUP WAS NORMAL. PATIENT INSTRUCTED TO FOLLOW UP WITH PRIMARY CARE PROVIDER IN 1-2 DAYS FOR RE- EVALUATION OF SYMPTOMS. PATIENT VERBALIZES UNDERSTANDING TO RETURN TO ED FOR NEW OR WORSENING SYMPTOMS OR IF FOLLOW UP WITH PCP CANNOT BE OBTAINED. PATIENT FEELS COMFORTABLE GOING HOME AT THIS TIME. ALL QUESTIONS ADDRESSED AT TIME OF DISCHARGE. Time of 1ST Reevaluation: 10:56 Reevaluation 1ST: Improved Patient Education/Counseling: Diagnosis, Treatment, Need For Follow Up Family Education/Counseling: Diagnosis, Treatment, No Family Present Medical Screening: No EMC Exist At This Time SEPSIS Sepsis Screen Date sepsis recognized/suspect: Aug 18, 2025 Time Sepsis recognized/suspect: 933 Recent Procedure: No On Antibiotic Therapy: No Respiratory Rate >20: No Heart Rate >90: No Temp<36 C (96.8 F) or >38.3 C: No SBP <90 or MAP <65 mmHG: No New Acute Mental Status Change: No Is the patient on CPAP, BIPAP,: No Vital Signs Date Time Temp Pulse Resp B/P (MAP) Pulse Ox O2 Delivery O2 Flow Rate FiO2 08/18/25 10:40 77 18 96 Room Air 08/18/25 10:40 98.2 77 18 120/80 (93) 96 98.2 08/18/25 09:34 98.2 77 18 120/80 96 98.2 Departure 1 Departure Time of Disposition: 10:56 Impression: Primary Impression: Encounter for wound re-check Disposition: 01 HOME / SELF CARE / HOMELESS Condition: Stable Additional Instructions: FOLLOW-UP WITH PCP IN 1 TO 2 DAYS. TAKE MEDICATIONS PRESCRIBED. RETURN TO ED FOR ANY NEW OR WORSENING SYMPTOMS. e-Prescriptions Cephalexin Monohydrate (Cephalexin) 500 Mg Cap 1 CAP PO QID, #28 CAP Prov: YVAN HOWE 08/18/25 Discharged With: Self Critical Care Note Critical Care Time?: No Stability Stability form required: No I personally scribed for YVAN HOWE ([email or web address]) on 08/18/25 at 10:46. El ectronically submitted by Silvino Roman ([email or web address]). YVAN HOWE Aug 18, 2025 10:46
== END 2025-08-18 10:43 | disposition home or self-care (01) ==
LOC: ER 09:31
DX: Z48.00 Encounter for change or removal of nonsurgical wound dressing (principal); F17.210 Nicotine dependence, cigarettes, uncomplicated; F10.90 Alcohol use, unspecified, uncomplicated; I10 Essential (primary) hypertension; E11.9 Type 2 diabetes mellitus without complications; Z79.899 Other long term (current) drug therapy; Z79.84 Long term (current) use of oral hypoglycemic drugs; Z88.0 Allergy status to penicillin; Z90.49 Acquired absence of other specified parts of digestive tract; Y90.9 Presence of alcohol in blood, level not specified; W22.8XXA Striking against or struck by other objects, initial encounter; Y93.89 Activity, other specified; Y92.89 Other specified places as the place of occurrence of the external cause; Y99.8 Other external cause status

== ENCOUNTER 2025-10-30 08:48 | Inpatient (IN) | payer MEDICARE, MEDICAID ==
[~2025-10-30] VITALS: Ht 167.6 cm; Wt 72.3 kg
[~2025-10-30 08:48] MED LIST changes: +CEPH500C PO
--- NOTE | 2025-10-30 09:15 | ED.PDOC ---
History of Present Illness HPI Comments This is a 70 year-old male who presents to the ED via EMS with a chief complaint of SOB and blurred vision for X3 days. Patient has a PMHx of type II DM. Patient has no further complaints or modifying factors at this time. Patients vitals are stable. Time Seen by MD: 08:53 Primary Care Provider: REENA Bonilla Notes: Medications, Allergies Allergies: Coded Allergies: Penicillins (Verified Allergy, Severe, FAINTED, 05/29/15) Home Meds Active Scripts Cephalexin Monohydrate (Cephalexin) 500 Mg Cap, 1 CAP PO QID, #28 CAP Prov:YVAN HOWE 08/18/25 Clindamycin Hcl (CLEOCIN) 150 Mg Cap, 1 CAP PO TID, #30 CAP Prov:SOLANGE POZO MD 03/17/25 Chlordiazepoxide Hcl (Librium) 25 Mg Cp, 25 MG PO TID, #30 CAP Prov:STEPHEN TREVIZO MD 04/24/24 Folic Acid (Folic Acid) 1 Mg Tab, 1 MG PO DAILY, #30 TAB Prov:STEPHEN TREVIZO MD 04/24/24 Thiamine HCl (Thiamine Hydrochloride) 100 Mg Tab, 100 MG PO DAILY, #30 TAB Prov:STEPHEN TREVIZO MD 04/24/24 Folic Acid (Folic Acid) 1 Mg Tab, 1 MG PO DAILY, #30 TAB Prov:STEPHEN TREVIZO MD 03/02/23 Thiamine Hcl (Thiamine Hcl) 100 Mg Tab, 1 TAB PO DAILY, #30 TAB 3 Refills Prov:STEPHEN TREVIZO MD 03/02/23 Sucralfate (Sucralfate) 1 Gm Tab, 1 GM PO Q6HR, #120 TAB Prov:STEPHEN TREVIZO MD 03/02/23 Pantoprazole Sodium Sesquihydr (Pantoprazole Sodium) 40 Mg Tab, 40 MG PO BID, #60 TAB Prov:STEPHEN TREVIZO MD 03/02/23 Reported Medications Bisoprolol Fumarate (Bisoprolol Fumarate) 10 Mg Tab, 1 TAB PO DAILY 03/01/23 Metformin Hydrochloride (Metformin Hcl Er) 500 Mg Tab, 1 TAB PO DAILY 02/28/23 Information Source: Patient Mode of Arrival: EMS Severity: Moderate Timing: Days Duration: Since onset Past Medical History PAST MEDICAL HISTORY: DM, HTN Surgical History: Appendectomy Family History Family History: Reviewed,noncontributory to illness, Unknown Social History Smoker: Cigarettes, Less Than 1 Pack/Day Alcohol: Occasionally Drugs: Denies Drug Use Lives In: Home Constitutional: denies: chills, diaphoresis, fatigue, fever, malaise, sweats, weakness, others EENTM: reports: blurred vision; denies: double vision, ear bleeding, ear discharge, ear drainage, ear pain, ear ringing, eye pain, eye redness, hearing loss, mouth pain, mouth swelling, nasal discharge, nose bleeding, nose congestion, nose pain, photophobia, tearing, throat pain, throat swelling, voice changes, others Respiratory: reports: SOB at rest, shortness of breath, SOB with excertion; denies: cough, hemoptysis, orthopnea, stridor, wheezing, others Cardiovascular: denies: chest pain, dizzy spells, diaphoresis, Dyspnea on exertion, edema, irregular heart beat, left arm pain, lightheadedness, palpitations, PND, syncope, others Gastrointestinal: denies: abdomen distended, abdominal pain, blood streaked bowels, constipated, diarrhea, dysphagia, difficulty swallowing, hematemesis, melena, nausea, poor appetite, poor fluid intake, rectal bleeding, rectal pain, vomiting, others Genitourinary: denies: burning, dysuria, flank pain, frequency, hematuria, incontinence, penile discharge, penile sore, pain, testicle pain, testicle swelling, urgency, others Neurological: denies: dizziness, fainting, headache, left sided numbness, left sided weakness, numbness, paresthesia, pre-existing deficit, right sided numbness, right sided weakness, seizure, speech problems, tingling, tremors, weakness, others Musculoskeletal: denies: back pain, gout, joint pain, joint swelling, muscle pain, muscle stiffness, neck pain, others Integumetry: denies: bruises, change in color, change in hair/nails, dryness, laceration, lesions, lumps, rash, wounds, others Allergic/Immunocompromised: denies: Difficulty Healing, Frequent Infections, Hives, Itching, others Hematologic/Lymphatic: denies: anemia, blood clots, easy bleeding, easy bruising, swollen glands, others Endocrine: denies: excessive hunger, excessive sweating, excessive thirst, excessive urination, flushing, intolerance to cold, intolerance to heat, unexplained weight gain, unexplained weight loss, others Psychiatric: denies: anxiety, bipolar disorder, depression, hopeless, panic disorder, schizophrenia, sleepless, suicidal, others All Other Systems: Reviewed and Negative Physical Exam General Appearance: Moderate Distress HEENT: Normal ENT Inspection, Pharynx Normal, TMs Normal Neck: Full Range of Motion, Non-Tender, Normal, Normal Inspection Respiratory: Chest Non-Tender, Lungs Clear, No Accessory Muscle Use, No Respiratory Distress, Normal Breath Sounds Cardiovascular: No Edema, No JVD, No Murmur, No Gallop, Normal Peripheral Pulses, Regular Rate/Rhythm Breast Exam: Deferred Gastrointestinal: No Organomegaly, Non Tender, No Pulsatile Mass, Normal Bowel Sounds, Soft Genitalia: Deferred Pelvic: Deferred Rectal: Deferred Extremities: No calf tenderness, Normal capillary refill, Normal inspection, Normal range of motion, Non-tender, No pedal edema Musculoskeletal : Apperance: Normal Neurologic: Alert, gathering machine setter II-XII nml as Tested, No Motor Deficits, Normal Affect, Normal Mood, No Sensory Deficits Cerebellar Function: Normal Reflexes: Normal Skin: Dry, Normal Color, Warm Peripheral Pulses: 3+ Radial (R), 3+ Radial (L) Lymphatic: No Adenopathy Was a procedure done? Was a procedure done?: No Differential Dx Considerations may include: Anemia Electrolyte imbalance X-Ray, Labs, Meds, VS Lab Test 10/30/25 09:25 Range/Units White Blood Count 7.9 4.4-10.8 10^3/uL Red Blood Count 2.18 L 4.5-5.90 10^6/uL Hemoglobin 7.0 *L 13.5-17.5 g/dL Hematocrit 21.2 L 41.0-53.0 % Mean Corpuscular Volume 97.3 80.0-100.0 fL Mean Corpuscular Hemoglobin 32.2 H 28.0-32.0 pg Mean Corpuscular Hemoglobin Concent 33.1 32.0-36.0 g/dL Red Cell Distribution Width 13.5 11.8-14.3 % Platelet Count 315 140-450 10^3/uL Mean Platelet Volume 9.3 6.9-10.8 fL Neutrophils (%) (Auto) 58.2 37.0-80.0 % Lymphocytes (%) (Auto) 28.6 10.0-50.0 % Monocytes (%) (Auto) 8.5 0.0-12.0 % Eosinophils (%) (Auto) 3.1 0.0-7.0 % Basophils (%) (Auto) 1.6 0.0-2.0 % Neutrophils # (Auto) 4.6 1.6-8.6 10 ^3/uL Lymphocytes # (Auto) 2.2 0.4-5.4 10 ^3/uL Monocytes # (Auto) 0.7 0-1.3 10 ^3/uL Eosinophils # (Auto) 0.2 0-0.8 10 ^3/uL Basophils # (Auto) 0.1 0-0.2 10 ^3/uL Nucleated Red Blood Cells 0.1 % Sodium Level 140 136-145 mmol/L Potassium Level 4.8 3.5-5.1 mmol/L Chloride Level 106 98-107 mmol/L Carbon Dioxide Level 26 20-31 mmol/L Anion Gap 8 5-15 Blood Urea Nitrogen 9 9-23 mg/dL Creatinine 0.95 0.700-1.30 mg/dL Glomerular Filtration Rate Calc 85 >90 mL/min BUN/Creatinine Ratio 9.5 L 10.0-20.0 Serum Glucose 119 H 74-106 mg/dL Calcium Level 8.8 8.7-10.4 mg/dL Troponin I High Sensitivity 5 </=54 ng/L [place] [id number] Ph: [phone] DIAGNOSTIC IMAGING Diagnostic Imaging Report : [id number] Signed PATIENT: LUIS HENRY JACCT: [id number] UNIT: [id number] : 1955 LOC: ER ROOM / BED: / AGE / SEX: 70 / M ADM STATUS: REG ER SERVICE [id number] ORDERING PHYSICIAN: JV AGUILA MD PROCEDURE(s): CXRP - CHEST PORTABLE REASON: sob ORDER NUMBER(s): [id number], ACCESSION NUMBER(s): [id number] CLINICAL HISTORY: sob TECHNIQUE: Single view of the chest was obtained. COMPARISON: XY CHEST PORTABLE on DOS: 04/21/24, XY CHEST PORTABLE on DOS: 02/28/23, CHEST TWO VIEWS ROUTINE on DOS: 11/30/19, CHEST TWO VIEWS ROUTINE on DOS: 03/25/19 FINDINGS: The heart size and pulmonary vasculature are normal. There is a patchy right basilar opacity. IMPRESSION: Patchy right basilar opacity, favor atelectasis. Patient alert. Complaining of generalized weakness. Shortness a breath. Vitals stable. Chest x-ray reviewed does show possible pneumonitis. Hemoglobin is low. He will need blood transfusion. Explained to the patient. Continue monitoring. Time of 1ST Reevaluation: 09:58 Reevaluation 1ST: Unchanged Patient Education/Counseling: Diagnosis, Treatment Family Education/Counseling: No Family Present SEPSIS Sepsis Screen Physician Orders Chest Portable (10/30/25 09:13) Urinalysis (10/30/25 09:13) Laboratory Tests Test 10/30/25 09:25 White Blood Count 7.9 10^3/uL (4.4-10.8) Departure 1 Departure Time of Disposition: 10:42 Impression: Primary Impression: Pneumonitis Additional Impression: Severe anemia Disposition: ADMITTED INPATIENT Admit to: Med Surg Condition: Guarded Critical Care Note Critical Care Time?: Yes (90 min-critical care time only) Stability Stability form required: No Heart Score Heart Score: Heart Score Response (Comments) Value History N/A 0 EKG N/A 0 Age N/A 0 Risk Factors N/A 0 Troponin N/A 0 Total 0 I personally scribed for JV AGUILA MD ([email or web address]) on 10/30/25 at 09:15. Electronically submitted by Lesa Rcio ([employer]). I personally scribed for JV AGUILA MD ([email or web address]) on 10/30/25 at 10:22. Electronically submitted by Lesa Rico ([employer]). JV AGUILA MD Oct 30, 2025 09:15
--- NOTE | 2025-10-30 09:48 | DVH ---
CLINICAL HISTORY: sob TECHNIQUE: Single view of the chest was obtained. COMPARISON: XY CHEST PORTABLE on DOS: 04/21/24, XY CHEST PORTABLE on DOS: 02/28/23, CHEST TWO VIEWS ROUTINE on DOS: 11/30/19, CHEST TWO VIEWS ROUTINE on DOS: 03/25/19 FINDINGS: The heart size and pulmonary vasculature are normal. There is a patchy right basilar opacity. IMPRESSION: Patchy right basilar opacity, favor atelectasis.
[2025-10-30 09:50] LABS: Hematocrit 21.2 % (41.0-53.0); Mean Corpuscular Hemoglobin 32.2 pg (28.0-32.0); Mean Corpuscular Volume 97.3 fL (80.0-100.0); Nucleated Red Blood Cells % 0.1 %
[2025-10-30 09:52] LABS: Anion Gap 8 (5-15); Carbon Dioxide 26 mmol/L (20-31); Chloride 106 mmol/L (98-107); Potassium 4.8 mmol/L (3.5-5.1); Sodium 140 mmol/L (136-145)
[2025-10-30 09:53] LABS: Calcium 8.8 mg/dL (8.7-10.4)
[2025-10-30 09:58] LABS: BUN/Creatinine Ratio 9.5 (10.0-20.0)
[2025-10-30 09:59] LABS: Blood Urea Nitrogen 9 mg/dL (9-23); Glucose 119 mg/dL (74-106)
[2025-10-30 10:02] LABS: Hemoglobin 7.0 g/dL (13.5-17.5)
[2025-10-30] MEDS ORDERED: LORazepam 2MG/ML-1ML VIAL IV PRN (11:30)
[2025-10-30] MEDS ORDERED: DOCUSATE SOD 100 MG CAP PO PRN (11:30)
[2025-10-30] MEDS ORDERED: DEXTROSE (50%) 50ML SYRG IV PRN (11:30)
[2025-10-30] MEDS ORDERED: ONDANSETRON HCL 4 MG/2 ML VIAL IV PRN (11:30)
[2025-10-30] MEDS ORDERED: MORPHINE SULFATE INJ 2 MG/ml SYRG IV PRN (11:30)
[2025-10-30] MEDS ORDERED: NITROGLYCERIN 0.4 MG SL TAB SL PRN (11:30)
--- NOTE | 2025-10-30 11:39 | DVHHP2 ---
History of Present Illness Reason for Visit: sob and dizziness History of Present Illness 70-year-old male with past medical history significant for diabetes mellitus, hypertension, alcoholic cirrhosis, and prior appendectomy presents with shortness of breath since Saturday associated with intermittent dizziness. He states that while at a store earlier today he became lightheaded and felt unwell. He contacted his nurse, who advised him to go to the emergency department for evaluation. The patient reports developing black stools three days ago, described as dark and pasty in appearance. He denies hematemesis or vomiting. He has not had a recent EGD and reports his last colonoscopy was approximately 10 years ago. He denies headache, chest pain, or syncope. He reports drinking alcohol, last use four days ago, and notes he drinks in termittently. Evaluation in the ED revealed symptomatic anemia with hemoglobin 7.0 and hematocrit 21.2. Glucose was 109 and remainder of CBC was unremarkable. Chest X-ray demonstrated right lower atelectasis. Based on presentation with melena, shortness of breath, dizziness, and anemia, patient is admitted for suspected upper gastrointestinal bleeding with associated acute blood loss anemia. Past Medical History see hpi above Past Surgical History see hpi above Family History Reviewed, non-contributory to the management of this case. Past Social History The patient lives at home, denies smoking, alcohol or illicit drugs abuse. Review of Systems Constitutional: No: Fever, Chills, Sweats, Weakness, Malaise, Other Eyes: No: Pain, Vision change, Conjunctivae inflammation, Eyelid inflammation, Other, Redness ENT: No: Ear pain, Ear discharge, Nose pain, Nose discharge, Nose congestion, Mouth pain, Mouth swelling, Throat pain, Throat swelling, Other Respiratory: Shortness of breath, SOB with excertion; No: Cough, Dry, Wheezing, Hemoptysis, Pleuritic Pain, Sputum, Wheezing, Other Cardiovascular: No: Chest Pain, Palpitations, Orthopnea, Paroxysmal Noc. Dyspnea, Edema, Lt Headedness, Other Gastrointestinal: No: Nausea, Vomiting, Abdominal Pain, Diarrhea, Constipation, Melena, Hematochezia, Other Genitourinary: No Dysuria, No Frequency, No Incontinence, No Hematuria, No Retention, No Other Musculoskeletal: No: other, neck pain, shoulder pain, arm pain, back pain, hand pain, leg pain, foot pain Skin: No: Rash, Lesions, Jaundice, Bruising, Other Neurological: Weakness; No: Numbness, Incoordination, Change in speech, Confusion, Seizures, Other Allergies: Coded Allergies: Penicillins (Verified Allergy, Severe, FAINTED, 05/29/15) Exam General Appearance: Alert, Oriented X3, Cooperative, Other (pale in color ) HEENT: Atraumatic, PERRLA, EOMI, Mucous membr. moist/pink Respiratory: Clear to auscultation, Normal air movement Cardiovascular: Regular rate, Normal S1, Normal S2, No murmurs Abdominal: Normal bowel sounds, Soft, No tenderness, No hepatospenomegaly, No masses Extremities: No clubbing, No cyanosis, No edema, Normal pulses, No tenderness/swelling Skin: No rashes, No breakdown, No significant lesion Neuro: Normal gait, Normal speech, Strength at 5/5 X4 ext, Normal tone, Sensation intact, Cranial nerves 3-12 NL Psych/Mental Status: Mental status NL, Mood NL Labs/Xrays Chest x-ray right basilar fever atelectasis I reviewed labs, imaging CT scan abdomen pelvis, EKG and all diagnostic studies on this patient from ED records and the medical chart Labs Test 10/30/25 09:25 Range/Units White Blood Count 7.9 4.4-10.8 10^3/uL Red Blood Count 2.18 L 4.5-5.90 10^6/uL Hemoglobin 7.0 *L 13.5-17.5 g/dL Hematocrit 21.2 L 41.0-53.0 % Mean Corpuscular Volume 97.3 80.0-100.0 fL Mean Corpuscular Hemoglobin 32.2 H 28.0-32.0 pg Mean Corpuscular Hemoglobin Concent 33.1 32.0-36.0 g/dL Red Cell Distribution Width 13.5 11.8-14.3 % Platelet Count 315 140-450 10^3/uL Mean Platelet Volume 9.3 6.9-10.8 fL Neutrophils (%) (Auto) 58.2 37.0-80.0 % Lymphocytes (%) (Auto) 28.6 10.0-50.0 % Monocytes (%) (Auto) 8.5 0.0-12.0 % Eosinophils (%) (Auto) 3.1 0.0-7.0 % Basophils (%) (Auto) 1.6 0.0-2.0 % Neutrophils # (Auto) 4.6 1.6-8.6 10 ^3/uL Lymphocytes # (Auto) 2.2 0.4-5.4 10 ^3/uL Monocytes # (Auto) 0.7 0-1.3 10 ^3/uL Eosinophils # (Auto) 0.2 0-0.8 10 ^3/uL Basophils # (Auto) 0.1 0-0.2 10 ^3/uL Nucleated Red Blood Cells 0.1 % Sodium Level 140 136-145 mmol/L Potassium Level 4.8 3.5-5.1 mmol/L Chloride Level 106 98-107 mmol/L Carbon Dioxide Level 26 20-31 mmol/L Anion Gap 8 5-15 Blood Urea Nitrogen 9 9-23 mg/dL Creatinine 0.95 0.700-1.30 mg/dL Glomerular Filtration Rate Calc 85 >90 mL/min BUN/Creatinine Ratio 9.5 L 10.0-20.0 Serum Glucose 119 H 74-106 mg/dL Calcium Level 8.8 8.7-10.4 mg/dL Troponin I High Sensitivity 5 </=54 ng/L SEPSIS Sepsis Screen Physician Orders Chest Portable (10/30/25 09:13) Urinalysis (10/30/25 09:13) Packedcells -Active Bleeding (10/30/25 10:43) Type And Screen (10/30/25 10:43) Levofloxacin 500mg (Levaquin 500mg/ 100m (10/30/25 10:45) Laboratory Tests Test 10/30/25 09:25 White Blood Count 7.9 10^3/uL (4.4-10.8) Assessment/Plan Assessment/Plan 70-year-old male with a history of alcoholic cirrhosis, diabetes, and hypertension admitted for acute symptomatic anemia secondary to suspected upper gastrointestinal bleeding, manifested by melena, shortness of breath, and dizziness. Acute Blood Loss Anemia / Suspected Upper GI Bleed Hemoglobin 7.0, hematocrit 21.2 Reports black stools x 3 days No hematemesis History of cirrhosis increases risk for varices Transfuse 2 units PRBC Serial H&H Start IV PPI GI consult for EGD evaluation Keep NPO after midnight Monitor for hemodynamic instability ordered protonix bid Alcoholic Cirrhosis History of chronic alcohol use Last drink 4 days ago Monitor for signs of portal hypertension and variceal bleed LFT monitoring Check INR acute Shortness of Breath / Dizziness Likely secondary to anemia Oxygen PRN Monitor vitals and telemetry transfuse to keep h/h .8.0 acute Right Lower Lobe Atelectasis Seen on chest X-ray Incentive spirometry Monitor respiratory status acute Alcohol Use Disorder Monitor for withdrawal CIWA protocol PRN ordered Thiamine, folate, multivitamin with banana acute social issues possible eviction will consult sw to assist chronic problems Diabetes Mellitus Accu-checks ACHS/Sliding scale insulin Hypertension Monitor blood pressure Alcoholic cirrhosis History of appendectomy FEN / PPx Fluids: IV fluids Electrolytes: Monitor CMP daily Nutrition: clr liquid diet DVT Prophylaxis: SCDs only (hold anticoagulation since acute bleeding) GI Prophylaxis: IV protonix Disposition Admit to medicine service. Transfuse 2 units PRBC. GI to evaluate for EGD. Monitor hemoglobin closely. Continue PPI therapy. Monitor for alcohol withdrawal. Plan discussed with: Patient Date of Service: Oct 30, 2025 Billing Provider: DANK MENDEZ DNP Common Visit Codes: [id number] INP/OBS CARE (HIGH) DANK MENDEZ DNP Oct 30, 2025 11:39
[2025-10-30] MEDS: SODIUM CHLORIDE 0.9% 1,000 ML IV SCH (14:43)
[2025-10-30] MEDS: ACCU-CHEK COMFORT CURVE STRIP VI SCH (14:51)
[2025-10-30] MEDS: InsuLIN REG 1unit/0.01ml Soln (100units/ml) SC SCH (14:51)
[2025-10-30] MEDS: PANTOPRAZOLE 40 MG/10 ML VIAL INJ IV ONE (14:56)
--- NOTE | 2025-10-30 18:18 | DVHINCON2 ---
Date of service: Oct 30, 2025 Referring Physician Tamar Leyva Reason for Consultation GI bleed History of Present Illness The patient is a 71-year-old male with past medical history significant for diabetes, hypertension, history of alcoholic liver disease, history of EGD showing ulcers and hiatal hernia 2 years ago admitted with weakness and fatigue. Found to have a low hemoglobin. Patient complains of melena for several days. He denies any recent history of EGD or colonoscopy. The patient denies hematemesis dysphagia, odynophagia, nausea or vomiting. The patient denies any aspirin or NSAID use. GI consultation was obtained for evaluation for his anemia and suspected upper GI bleed. Past Medical History As above Past Surgical History As above Family History: Family history: Hypertension G8 FATHER G8 MOTHER Social History History of alcohol abuse Allergies: Coded Allergies: Penicillins (Verified Allergy, Severe, FAINTED, 05/29/15) Home Meds Active Scripts Cephalexin Monohydrate (Cephalexin) 500 Mg Cap, 1 CAP PO QID, #28 CAP Prov:YVAN HOWE 08/18/25 Clindamycin Hcl (CLEOCIN) 150 Mg Cap, 1 CAP PO TID, #30 CAP Prov:SOLANGE POZO MD 03/17/25 Chlordiazepoxide Hcl (Librium) 25 Mg Cp, 25 MG PO TID, #30 CAP Prov:STEPHEN TREVIZO MD 04/24/24 Folic Acid (Folic Acid) 1 Mg Tab, 1 MG PO DAILY, #30 TAB Prov:STEPHEN TREVIZO MD 04/24/24 Thiamine HCl (Thiamine Hydrochloride) 100 Mg Tab, 100 MG PO DAILY, #30 TAB Prov:STEPHEN TREVIZO MD 04/24/24 Folic Acid (Folic Acid) 1 Mg Tab, 1 MG PO DAILY, #30 TAB Prov:STEPHEN TREVIZO MD 03/02/23 Thiamine Hcl (Thiamine Hcl) 100 Mg Tab, 1 TAB PO DAILY, #30 TAB 3 Refills Prov:STEPHEN TREVIZO MD 03/02/23 Sucralfate (Sucralfate) 1 Gm Tab, 1 GM PO Q6HR, #120 TAB Prov:STEPHEN TREVIZO MD 03/02/23 Pantoprazole Sodium Sesquihydr (Pantoprazole Sodium) 40 Mg Tab, 40 MG PO BID, #60 TAB Prov:STEPHEN TREVIZO MD 03/02/23 Reported Medications Bisoprolol Fumarate (Bisoprolol Fumarate) 10 Mg Tab, 1 TAB PO DAILY 03/01/23 Metformin Hydrochloride (Metformin Hcl Er) 500 Mg Tab, 1 TAB PO DAILY 02/28/23 Current Medications Current Medications Medications (Trade) Dose Ordered Sig/Brenden Route PRN Reason Start Time Stop Time Status Last Admin Sodium Chloride 1,000 ml @ 100 mls/hr Q10H IV 10/30/25 11:30 Ondansetron HCl (Zofran) 4 mg Q4HP PRN IV NAUSEA / VOMITING 10/30/25 11:30 Docusate Sodium (Colace Capsule) 100 mg BIDPRN PRN PO FOR CONSTIPATION 10/30/25 11:30 Morphine Sulfate 2 mg Q4HPRN PRN IV SEVERE PAIN (7-10 PAIN SCALE) 10/30/25 11:30 Nitroglycerin (Ntrostat Sublingual) 0.4 mg Q5MINP PRN SL FOR CHEST PAIN 10/30/25 11:30 Diagnostic Test (Pha) (Accu-Chek Comfort Curve T) 1 strip ACHS 10/30/25 11:30 10/30/25 17:43 Insulin Human Regular (InsuLIN R) ACHS SC 10/30/25 11:30 Dextrose 50 ml UD PRN IV Blood Sugar LESS THAN 60 10/30/25 11:30 Lorazepam (Ativan Inj) 1 mg Q5MINP PRN IV SEIZURES 10/30/25 11:30 Folic Acid 1 mg/ Magnesium Sulfate 8 meq/ Multivitamins 10 ml/Thiamine HCl 100 mg/Sodium Chloride 1,013.2 ml @ 126.247 mls/hr DAILY@1800 INJ 10/30/25 18:00 Pantoprazole Sodium (Protonix) 40 mg BID IV 10/30/25 22:00 Review of Systems Negative review of systems other than HPI Vital Signs Vital Signs Date Time Temp Pulse Resp B/P (MAP) Pulse Ox O2 Delivery O2 Flow Rate FiO2 10/30/25 16:32 98.9 72 15 136/81 100 98.9 Physical Exam Physical examination: General Appearance: Alert, Oriented X3, Cooperative, No acute distress HEENT: Atraumatic, PERRLA, EOMI, Mucous membrane moist/pink Respiratory: Clear to auscultation, Normal air movement Cardiovascular: Regular rate, Normal S1, Normal S2, No murmurs, no chest wall tenderness Abdominal: Normal bowel sounds, Soft, No tenderness, No hepatospenomegaly, No masses Extremities: No clubbing, No cyanosis, No edema, Normal pulses, No tenderness/swelling Skin: No rashes, No breakdown, No significant lesion Neuro: Normal gait, Normal speech, Strength at 5/5 X4 ext, Normal tone, Sensation intact, Cranial nerves 3-12 NL, Reflexes 2+ Psych/Mental Status: Mental status NL, Mood NL Labs/Diagnostic Data Labs Test 10/30/25 17:42 10/30/25 09:25 Range/Units POC Glucose 125 H 70-106 mg/dl White Blood Count 7.9 4.4-10.8 10^3/uL Red Blood Count 2.18 L 4.5-5.90 10^6/uL Hemoglobin 7.0 *L 13.5-17.5 g/dL Hematocrit 21.2 L 41.0-53.0 % Mean Corpuscular Volume 97.3 80.0-100.0 fL Mean Corpuscular Hemoglobin 32.2 H 28.0-32.0 pg Mean Corpuscular Hemoglobin Concent 33.1 32.0-36.0 g/dL Red Cell Distribution Width 13.5 11.8-14.3 % Platelet Count 315 140-450 10^3/uL Mean Platelet Volume 9.3 6.9-10.8 fL Neutrophils (%) (Auto) 58.2 37.0-80.0 % Lymphocytes (%) (Auto) 28.6 10.0-50.0 % Monocytes (%) (Auto) 8.5 0.0-12.0 % Eosinophils (%) (Auto) 3.1 0.0-7.0 % Basophils (%) (Auto) 1.6 0.0-2.0 % Neutrophils # (Auto) 4.6 1.6-8.6 10 ^3/uL Lymphocytes # (Auto) 2.2 0.4-5.4 10 ^3/uL Monocytes # (Auto) 0.7 0-1.3 10 ^3/uL Eosinophils # (Auto) 0.2 0-0.8 10 ^3/uL Basophils # (Auto) 0.1 0-0.2 10 ^3/uL Nucleated Red Blood Cells 0.1 % Sodium Level 140 136-145 mmol/L Potassium Level 4.8 3.5-5.1 mmol/L Chloride Level 106 98-107 mmol/L Carbon Dioxide Level 26 20-31 mmol/L Anion Gap 8 5-15 Blood Urea Nitrogen 9 9-23 mg/dL Creatinine 0.95 0.700-1.30 mg/dL Glomerular Filtration Rate Calc 85 >90 mL/min BUN/Creatinine Ratio 9.5 L 10.0-20.0 Serum Glucose 119 H 74-106 mg/dL Calcium Level 8.8 8.7-10.4 mg/dL Troponin I High Sensitivity 5 </=54 ng/L Plasma/Serum Blood Alcohol < 3.0 <10 mg/dL Assessment History of gastric ulcers Anemia History of alcohol abuse GI bleed/melena Problems(with codes): (1) Melena (2) Alcohol abuse Plan/Recommendation Follow H&H Transfuse to keep hemoglobin above 7 Avoid aspirin NSAIDs and anticoagulants Protonix The patient will need EGD in consider colonoscopy Plan discussed with: Patient ANGELICA SANCHEZ MD Oct 30, 2025 18:18
[2025-10-30] MEDS: FOLIC ACID 1 MG, MAGNESIUM SULF SDV 50% 8 MEQ, MULTIPLE VITAMIN 10 ML, THIAMINE INJ 100... INJ SCH (20:59)
[2025-10-30 22:00] VITALS: BP 120/63; PULSE 80; RESP 16; TEMP 97.5; O2SAT 100
[2025-10-30 22:23] VITALS: BP 120/63; PULSE 80; RESP 16; RESP 18; TEMP 97.5; O2SAT 95; O2SAT 98
[2025-10-30 22:26] LABS: Urine Protein, UAD Negative (Negative)
[2025-10-30] MEDS: PANTOPRAZOLE 40 MG/10 ML VIAL INJ IV SCH (23:01)
[2025-10-30 23:26] VITALS: BP 125/71; PULSE 74; RESP 18; TEMP 97.7
[2025-10-30 23:49] VITALS: BP 114/79; PULSE 82; RESP 18; TEMP 97.9
[2025-10-31 01:00] VITALS: BP 122/60; PULSE 73; RESP 18; TEMP 98; O2SAT 100
[2025-10-31 02:25] VITALS: BP 123/77; PULSE 80; RESP 18; TEMP 98.2
[2025-10-31 05:00] VITALS: BP 108/69; PULSE 73; RESP 18; TEMP 97.9; O2SAT 99
[2025-10-31 06:11] LABS: Hemoglobin 7.8 g/dL (13.5-17.5); Nucleated Red Blood Cells % 0.0 %
[2025-10-31 06:13] LABS: Hematocrit 23.4 % (41.0-53.0); Mean Corpuscular Hemoglobin 31.4 pg (28.0-32.0); Mean Corpuscular Volume 94.4 fL (80.0-100.0)
[2025-10-31 06:28] LABS: Alanine Aminotransferase 12 U/L (7-40); Alkaline Phosphatase 72 U/L (46-116); Anion Gap 7 (5-15); BUN/Creatinine Ratio 9.8 (10.0-20.0); Carbon Dioxide 26 mmol/L (20-31); Chloride 106 mmol/L (98-107); Potassium 4.6 mmol/L (3.5-5.1); Sodium 139 mmol/L (136-145)
[2025-10-31 06:33] LABS: Albumin 2.7 g/dL (3.2-4.8); Bilirubin, Total 1.5 mg/dL (0.2-1.0); Blood Urea Nitrogen 8 mg/dL (9-23); Calcium 8.3 mg/dL (8.7-10.4); Glucose 116 mg/dL (74-106); Total Protein 5.2 g/dL (5.7-8.2)
[2025-10-31 09:00] VITALS: BP 139/77; PULSE 74; RESP 18; O2SAT 97
[2025-10-31 13:00] VITALS: BP 142/67; PULSE 75; RESP 16; TEMP 97.9; O2SAT 94
--- NOTE | 2025-10-31 15:57 | DVHPN2 ---
Subjective 70-year-old male with a known history of peptic ulcer disease, chronic alcoholism, diabetes mellitus type 2, hypertension, chronic liver disease presented to the hospital with a bright red blood per rectum found to have acute anemia with a evidence of suspected upper as well as lower GI bleed. Patient is status post 1 unit of packed RBC. Changes from previous H/P or p: No Changes Eyes: No Pain, No Vision change, No Conjunctivae inflammation, No Eyelid inflammation, No Other, No Redness ENT: No Ear pain, No Ear discharge, No Nose pain, No Nose discharge, No Nose congestion, No Mouth pain, No Mouth swelling, No Throat pain, No Throat swelling, No Other Cardiovascular: No Chest Pain, No Palpitations, No Orthopnea, No Paroxysmal Noc. Dyspnea, No Edema, No Lt Headedness, No Other Respiratory: No Cough, No Dry; Shortness of breath, SOB with excertion; No Wheezing, No Hemoptysis, No Pleuritic Pain, No Sputum, No Other Gastrointestinal: No Nausea, No Vomiting, No Abdominal Pain, No Diarrhea, No Constipation, No Melena, No Hematochezia, No Other Genitourinary: No Dysuria, No Frequency, No Incontinence, No Hematuria, No Retention, No Other Musculoskeletal: No other, No neck pain, No shoulder pain, No arm pain, No back pain, No hand pain, No leg pain, No foot pain Skin: No Rash, No Lesions, No Jaundice, No Bruising, No Other Objective Vitals Vital Signs Date Time Temp Pulse Resp B/P (MAP) Pulse Ox O2 Delivery O2 Flow Rate FiO2 10/31/25 13:00 97.9 75 16 142/67 (92) 94 97.9 10/31/25 08:00 Room Air* 0 21 Intake/Output Intake and Output 10/31/25 07:00 Intake Total 826.247 ml Balance 826.247 ml Intake Oral 0 ml IV Total 226.247 ml Blood Product 300 ml Packed Cells 300 ml Exam HEENT pupils are reactive Neck is supple CV is S1-S2 regular rate and rhythm Respiratory diminished breath sounds bases GI positive bowel sound Extremity no edema [employer] no motor deficit Medications Current Medications Medications Dose Ordered Sig/[place] Route Start Time Stop Time Status Last Admin Dose Admin Sodium Chloride 1,000 ml @ 100 mls/hr Q10H IV 10/30/25 11:30 Ondansetron HCl 4 mg Q4HP PRN IV 10/30/25 11:30 Docusate Sodium 100 mg BIDPRN PRN PO 10/30/25 11:30 Morphine Sulfate 2 mg Q4HPRN PRN IV 10/30/25 11:30 Nitroglycerin 0.4 mg Q5MINP PRN SL 10/30/25 11:30 Diagnostic Test (Pha) 1 strip ACHS 10/30/25 11:30 10/31/25 11:30 1 STRIP Insulin Human Regular ACHS SC 10/30/25 11:30 Dextrose 50 ml UD PRN IV 10/30/25 11:30 Lorazepam 1 mg Q5MINP PRN IV 10/30/25 11:30 Folic Acid 1 mg/ Magnesium Sulfate 8 meq/ Multivitamins 10 ml/Thiamine HCl 100 mg/Sodium Chloride 1,013.2 ml @ 126.247 mls/hr DAILY@1800 INJ 10/30/25 18:00 10/30/25 20:59 126.247 MLS/HR Pantoprazole Sodium 40 mg BID IV 10/30/25 22:00 10/31/25 09:42 40 MG Laboratory Results Laboratory Tests 10/31/25 05:54 Chemistry Test 10/31/25 05:54 Albumin 2.7 g/dL (3.2-4.8) L Calcium Level 8.3 mg/dL (8.7-10.4) L Total Protein 5.2 g/dL (5.7-8.2) L LFT Test 10/31/25 05:54 Alanine Aminotransferase (ALT) 12 U/L (7-40) Alkaline Phosphatase 72 U/L (46-116) Aspartate Amino Transferase (AST) 17 U/L (13-40) Total Bilirubin 1.5 mg/dL (0.2-1.0) H Urinalysis Test 10/30/25 21:56 Urine Color Light-yellow (Yellow) Urine Clarity Clear (Clear) Urine pH 5.5 (5.0-9.0) Urine Specific [place] 1.019 (1.001-1.035) Urine Protein Negative (Negative) Urine Ketones Negative (Negative) Urine Blood 2+ /uL (Negative) H Urine Nitrite Negative (Negative) Urine Bilirubin Negative (Negative) Urine Urobilinogen Normal mg/dL (Negative) Urine Leukocyte Esterase Negative /uL (Negative) Urine RBC 37 /hpf (0 - 3) Urine Microscopic WBC < 1 /HPF (0-3) Urine Squamous Epithelial Cells Few /hpf (<5) Urine Bacteria None seen /hpf (None Seen) Urine Mucus Few (None Seen) Urine Glucose Normal mg/dL (Normal) Assessment/Plan Assessment/Plan 70-year-old male with a known history of peptic ulcer disease, chronic alcoholism, diabetes mellitus type 2, hypertension, chronic liver disease presented to the hospital with a bright red blood per rectum found to have acute anemia with a evidence of suspected upper as well as lower GI bleed. Patient is status post 1 unit of packed RBC. 1. Acute symptomatic anemia status post 1 unit of packed RBC 2. Ruled out upper GI bleed as patient is having some melanotic stools and bright red blood per rectum 3. History of peptic ulcer disease 4. Chronic alcoholism 5. Diabetes mellitus type 2 6. Hypertension 7. Alcoholic liver disease -continue Protonix, GI consultation for possible EGD, monitor H&H Plan discussed with: Patient Date of Service: Oct 31, 2025 Billing Provider: PHOENIX ANTON MD Common Visit Codes: [id number] INP/OBS CARE(HIGH) PHOENIX ANTON MD Oct 31, 2025 15:56
--- NOTE | 2025-10-31 19:54 | DVHPN2 ---
Progress Note - Dictate Date Seen: Oct 31, 2025 (Late entry Time of visit 3 pm) Medical Necessity Reason Pt with a Central, PICC or Fol: No Subjective No new complaints Patient has no further bleeding He is S/P 1 unit PRBC Pt in holding area H 5 vital signs Vital Sign Date Time Temp Pulse Resp B/P (MAP) Pulse Ox O2 Delivery O2 Flow Rate FiO2 10/31/25 13:00 97.9 75 16 142/67 (92) 94 97.9 10/31/25 08:00 Room Air* 0 21 Total Intake and Output 10/30/25 10/30/25 10/31/25 15:00 23:00 07:00 Intake Total 226.247 ml 600 ml Balance 226.247 ml 600 ml objective hemodynamicaaly stable A & O x 3 No localizing signs laboratory and microbiology Laboratory Tests 10/31/25 05:54 Test 10/31/25 05:54 Range/Units Serum Glucose 116 H 74-106 mg/dL Problems(with codes): (1) Severe anemia (2) Alcohol abuse (3) Melena Prognosis Plan Follow H&H Transfuse to keep hemoglobin above 7 Avoid aspirin NSAIDs and anticoagulants and alcohol Protonix IV 40 mg q.12 hours The patient will need EGD and consider colonoscopy I was notified by the nurse that the patient has decided to leave AMA Patient was advised follow up with GI Services in as an outpatient to discuss elective panendoscopy Plan discussed with: Other (ER Nurse) ISELA HERNANDEZ MD Oct 31, 2025 19:54
== END 2025-10-31 14:55 | disposition left against medical advice (07) | DRG 812 ==
LOC: EDBD 08:48 → EDUNIT# 08:48 → ER 08:48 → OVERFLOW 11:16
PROVIDERS: ADMIT Nurse Practitioner Family; ATTEND Nurse Practitioner Family
PROC: 30233N1 Transfusion of Nonautologous Red Blood Cells into Peripheral Vein, Percutaneous Approach (ICD-10-PCS; principal; 2025-10-30)
DX: D62 Acute posthemorrhagic anemia (principal); K70.30 Alcoholic cirrhosis of liver without ascites; E11.9 Type 2 diabetes mellitus without complications; K92.1 Melena; F10.10 Alcohol abuse, uncomplicated; I10 Essential (primary) hypertension; J98.11 Atelectasis; J98.4 Other disorders of lung; F17.210 Nicotine dependence, cigarettes, uncomplicated; Z53.29 Procedure and treatment not carried out because of patient's decision for other reasons; Z88.0 Allergy status to penicillin; Z90.49 Acquired absence of other specified parts of digestive tract; Z87.11 Personal history of peptic ulcer disease; Z82.49 Family history of ischemic heart disease and other diseases of the circulatory system
CPT/HCPCS: 36415; 36430; 71045; 80048; 80053; 80320; 81001; 82962; 84484; 85025; 86850; 86900; 86901; 86920; 96365; 96375; 99291; 99292; G0378; J1815; J1956; J2470